=== PATIENT | male | born 2005 ===

== ENCOUNTER 2023-12-31 15:41 | Emergency (ER) | payer OTHER, SELFPAY ==
[2023-12-31 15:44] VITALS: BP 113/71; PULSE 82; TEMP 36.8; O2SAT 100; BMI 27.1
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
== END 2023-12-31 17:40 | disposition home or self-care (01) ==
PROVIDERS: Emergency Provider Nurse Practitioner Family
DX: S40.212A Abrasion of left shoulder, initial encounter (principal); V59.9XXA Occupant (driver) (passenger) of pick-up truck or van injured in unspecified traffic accident, initial encounter
CPT/HCPCS: 70450; 71250; 72125; 73000; 73060; 74176; 99284